=== PATIENT | female | born 1990 | race Caucasian/White ===

== ENCOUNTER 2016-09-16 14:30 | Emergency (ER) | payer OTHER ==
[~2016-09-16] VITALS: Ht 170.2 cm; Wt 56.8 kg
[2016-09-16 14:32] VITALS: BP 128/75; PULSE 112; RESP 20; O2SAT 99
--- NOTE | 2016-09-16 16:57 | ED.REPORT ---
HPI-Fever Date of Service Sep 16, 2016 ED Provider: Doc,Ed MD History of Present Illness: fever since last night. coughing. primary care is juan c strickland,both ears hurt also. no medications Nursing Notes Stated Complaint: FEVER Chief Complaint: FLU/Cold Symptoms Nursing Notes Reviewed: Yes Allergies: Coded Allergies: Penicillins (Verified Allergy, Unknown, 05/23/16) General Time Seen by MD: 16:56 Chief Complaint Fever currently Hx Obtained From: Patient Onset Occurred: Yesterday Past Medical History Past Medical History none reported Past Surgical History wisdom teeth removal Smoking History Never Smoker Social History Alcohol Use: Denies alcohol use Drug Use: Denies drug use Other Social History: Lives with parents Occupation will need a school note 09/16/2016 Ambulatory Status Independent Review of Systems Basic Review of Systems Musculoskeletal: No extremity swelling, No extremity pain, Full range of motion , Joints NL Hematologic: No bleeding, No bruising Endocrine: No cold intolerance, No heat intolerance, No weight gain, No weight loss Allergy / Immune: No allergy Psychiatric: Normal thought content Physical Exam Initial Vital Signs Vital Signs (First) Date Time Temp Pulse Resp B/P Pulse Ox O2 Delivery O2 Flow Rate FiO2 09/16/16 14:32 38.6 112 20 128/75 99 Room Air Initial VS: Reviewed, Vital signs abnormal Head / Eyes: Atraumatic, Normocephalic, PERRL ENT: Mucous membranes moist, Conjunctiva normal, No scleral icterus Abdomen / GI: Soft, Non-tender, No guarding, No rebound, No distention Back: No CVA tenderness Lymphatic: No lymphadenopathy Extremities: Vascular intact, Neuro intact, No swelling, No tenderness Psychiatric: Mood/affect normal, Behavior normal, Normal thought content General/Constitutional: Awake, Alert, No acute distress Neck: Atraumatic, Supple, No meningismus, Full range of motion Respiratory / Chest: Atraumatic, Breath sounds NL, Breath sounds = bilat, No respiratory distress Cardiovascular: Heart rate NL, Regular rhythm, Heart sounds NL Skin: Atraumatic, Color NL, No rash Neurologic: Oriented X3, Speech NL, No motor deficits bilateral canals are erthyma Abdomen: Atraumatic, Soft, Non-tender Interpretation & Diagnostics Lab Results Interpretation Lab Results Interpretation: positive influenza Discharge & Departure Impression: Primary Impression: Influenza due to influenza A virus Additional Impressions: Otitis externa Laterality: bilateral Fever Disposition: Home Patient Instructions: Influenza (ED), Otitis Externa (ED) Additional Instructions: The swab indicates influenza A. The exam show that both of your ears have an ear canal infection. Use cortisporin otitc soln 4 drops each ear 3 times a day for 7 days. You are with in the time frame for tamiflu. However, it may not be available in the community. Use ibuprofen 800 mg 3 times a day for 5 days. Push fluids. No school for this week, note provided. Referrals: Ivett Nicole (PCP) EDSupervising Provider for APC: Petar Villafuerte MD copies to: Ivett Nicole Sue ARNP Sep 16, 2016 16:57
[2016-09-16] MEDS ORDERED: Ketorolac 30 mg/mL 2 mL Inj IM ONE (17:20)
[2016-09-16 17:53] VITALS: BP 111/59; PULSE 94; RESP 16; O2SAT 97
== END 2016-09-16 17:55 | disposition home or self-care (01) ==
LOC: SED 14:30
DX: J10.1 Influenza due to other identified influenza virus with other respiratory manifestations (principal); H60.93 Unspecified otitis externa, bilateral; Z88.0 Allergy status to penicillin
CPT/HCPCS: 87804; 96372; 99284; J1885